=== PATIENT | female | born 1990 | race Caucasian/White ===

== ENCOUNTER 2016-10-14 08:17 | Emergency (ER) | payer OTHER ==
[2016-10-14 08:39] LABS: URINE MICRO REVIEW NEEDED? NO; URINE SOURCE CLEAN CATCH
[2016-10-14 08:41] LABS: BILIRUBIN URINE NEGATIVE (NEGATIVE); BLOOD URINE TRACE (NEGATIVE); COLOR YELLOW; GLUCOSE URINE NEGATIVE (NEGATIVE); LEUKOCYTES URINE MODERATE (NEGATIVE); NITRITE URINE NEGATIVE (NEGATIVE); PROTEIN URINE TRACE mg/dL (NEGATIVE); SP GRAVITY URINE 1.018; TURBIDITY URINE HAZY (CLEAR); UROBILINOGEN URINE 3 mg/dL (NORMAL)
[2016-10-14 08:43] LABS: UR EPITHELIAL CELLS <10 /HPF (<10); URINE BACTERIA 2+ /HPF; URINE CULTURE NEEDED? YES; URINE RBC <10 /HPF (<10); URINE WBC TNTC /HPF (<10)
--- NOTE | 2016-10-14 08:58 | PROVIDER DOCUMENTATION ---
HPI-Female /OB/Breast - General Chief Complaint: UTI Symptoms Stated Complaint: POSS UTI Time Seen by Provider: 10/14/16 08:48 Source: reports: patient Allergies/Adverse Reactions: Patient Allergies Allergy/AdvReac Type Severity Reaction Status Date / Time No Known Allergies Allergy Verified 10/14/16 09:17 Home Medications: Home Medication List Medication Instructions Recorded Confirmed Last Taken Type Amoxicillin 875 mg PO TID #30 tablet 07/02/16 Unknown Rx Tramadol [Ultram] 50 mg PO Q6H PRN PRN #30 tablet 07/02/16 Unknown Rx Phenazopyridine HCl [Pyridium] 100 mg PO TID #6 tablet 10/14/16 Unknown Rx Sulfamethoxazole/Trimethoprim 1 each PO BID #10 tablet 10/14/16 Unknown Rx [Bactrim Ds Tablet] - History of Present Illness-Female /OB Nature of Presenting Problem: This pt presents to the ED with c/o dysuria, hematuria, and left sided flank pain since Monday. She also reports "brownish, reddish chunks" in her urine. Has a hx of frequent UTIs. Denies N/V/D, chills, fever. Location of complaint: reports: suprapubic, urethral Quality of Pain: reports: aching, burning Severity in ED: reports: moderate Onset/Duration: reports: 24 hours ago Timing: reports: still present Vaginal Symptoms: reports: no symptoms Vaginal Bleeding Amount: None Urinary Symptoms: reports: dysuria, frequency Related Symptoms: reports: no symptoms Leakage of Fluid: none Sexual intercourse history: reports: Less Than 2 Months Ago, Single Partner Similar Symptoms Previously?: Yes Recently seen or treated by another doctor?: No Review of Systems - Adult - REVIEW OF SYSTEMS - ADULT Constitutional: reports: no symptoms reported. denies: chills, fever Eyes: reports: no symptoms reported. denies: discharge, dry eyes Ears, Nose, Mouth & Throat: reports: no symptoms reported. denies: ear discharge, ear pain Cardiovascular: reports: no symptoms reported. denies: chest pain, edema Respiratory: reports: no symptoms reported. denies: chronic cough, cough Gastrointestinal: reports: abdominal pain. denies: hematemesis, diarrhea, nausea, vomiting Genitourinary: reports: dysuria, frequency, frequent UTI's. denies: discharge, flank pain, hematuria Musculoskeletal: reports: no symptoms reported. denies: bone pain, back pain Integumentary: reports: no symptoms reported. denies: hives, hair loss Neurological: reports: no symptoms reported. denies: ataxia, dizziness/vertigo Psychiatric: reports: no symptoms reported. denies: anxiety, anti-depressant use Endocrine: reports: no symptoms reported Hematologic/Lymphatic: reports: no symptoms reported Allergic/Immunologic: reports: no symptoms reported All Other Systems: Reviewed and Negative Past History - Adult - PAST MEDICAL HISTORY-ADULT Review of Records: reports: Old Records Reviewed, Nursing Assessment Review, Medications Reviewed, Social history reviewed & non-contributory. Major Childhood Illnesses: reports: denies history Cardiovascular: reports: denies history Respiratory: reports: denies history Gastrointestinal: reports: cholelithiasis Obstetrical/Gynecological: reports: denies history Genitourinary: reports: cancer (cervical) Musculoskeletal: reports: denies history Neurological: reports: denies history Psychiatric: reports: depression Endocrine/Immune: reports: denies history Other Conditions: reports: denies history - PRIOR SURGERIES/PROCEDURES Surgical/Procedure History: reports: appendectomy, cholecystectomy, hysterectomy - IMMUNIZATION STATUS Childhood Immunizations: See Nurse Assessment Flu Vaccine: See Nurse Assessment Physical Exam-General - PHYSICAL EXAM-ADULT Initial Vital Signs Reviewed: Yes - CONSTITUTIONAL General Appearance: appears well, alert, no apparent distress - EYES Eyes: PERRL/EOMI, pink conjunctivae - HEAD, EARS, NOSE, MOUTH & THROAT HENMT: normocephalic/atraumatic, moist mucous membranes, normal ENT inspection - NECK Neck: non-tender, full range of motion, supple - RESPIRATORY Respiratory: chest non-tender, lungs clear, normal breath sounds - CARDIOVASCULAR Cardiovascular: normal peripheral pulses, regular rate, rhythm - GASTROINTESTINAL (ABDOMEN) Abdominal Exam: normal bowel sounds, non tender, soft - MUSCULOSKELETAL Back Exam: normal inspection, no CVA tenderness, no vertebral tenderness Extremity: normal range of motion, non-tender, normal gait, normal inspection - SKIN Integumentary: normal color, normal turgor, warm/dry - NEUROLOGIC Neurologic: grossly normal, no motor/sensory deficits Progress - PLAN OF CARE/RESULTS Progress/Plan/Lab Results: Laboratory Tests 10/14/16 08:35 Urine Source CLEAN CATCH Urine Color YELLOW Urine Turbidity HAZY Urine pH 7.0 Ur Specific [place] 1.018 Urine Protein TRACE A Ur Glucose (Stick) NEGATIVE Ur Ketones (Stick) NEGATIVE Urine Blood TRACE A Urine Nitrite NEGATIVE Urine Bilirubin NEGATIVE Urobilinogen Dipstick 3 A Urine Leukocytes MODERATE A Urine WBC (Auto) TNTC A Urine RBC (Auto) <10 U Epithel Cells (Auto) <10 Urine Bacteria (Auto) 2+ Orders Category Date Time Status URINALYSIS W/POSS RFLX CULT [URINALYSIS] Stat Lab 10/14/16 08:35 Completed URINE CULTURE [RM] Routine Lab 10/14/16 08:47 Received Vital Signs Temp Pulse Resp BP Pulse Ox 10/14/16 09:14 98.3 F 70 18 129/72 100 10/14/16 08:20 98.4 F 85 16 124/73 100 No Known Allergies Allergy (Verified 10/14/16 09:17) Amoxicillin 875 mg PO TID #30 tablet 07/02/16 Tramadol [Ultram] 50 mg PO Q6H PRN PRN #30 tablet 07/02/16 I&O 10/13/16 10/14/16 10/15/16 06:59 06:59 06:59 Output Total 30 Balance -30 Laboratory 10/14/16 08:35 Urine Source CLEAN CATCH Urine Color YELLOW Urine Turbidity HAZY Urine pH 7.0 Ur Specific [place] 1.018 Urine Protein TRACE A Ur Glucose (Stick) NEGATIVE Ur Ketones (Stick) NEGATIVE Urine Blood TRACE A Urine Nitrite NEGATIVE Urine Bilirubin NEGATIVE Urobilinogen Dipstick 3 A Urine Leukocytes MODERATE A Urine WBC (Auto) TNTC A Urine RBC (Auto) <10 U Epithel Cells (Auto) <10 Urine Bacteria (Auto) 2+ Departure - Departure Time of Disposition Order: 09:24 DIAGNOSIS: UTI (urinary tract infection) Qualifiers: Urinary tract infection type: acute cystitis Hematuria presence: without hematuria Qualified Code(s): N30.00 - Acute cystitis without hematuria Disposition: HOME 01 Certified Medical Emergency: Emergent Condition: Good Additional Instructions: Take medication as prescribed. Stay well hydrated. Follow up with your primary care provider. ED Follow Up Instructions: You have been treated by a care provider in the Emergency Department. These instructions are being provided to you so you can have an understanding of how to care for yourself upon discharge. Upon discharge from the Emergency Department, you are responsible for making arrangements for follow-up care by a physician of your choice. Take all prescribed medications as directed. Return to the Emergency Department immediately for any new or worsening symptoms. You may call the Physician Referral phone number at [phone] to obtain a list of Physicians who are taking new patients. Prescriptions: Sulfamethoxazole/Trimethoprim [Bactrim Ds Tablet] 1 each PO BID #10 tablet Phenazopyridine HCl [Pyridium] 100 mg PO TID #6 tablet Attestation - Physician/ SRIDEVI Attestation Patient care was provided by Advanced Practice Provider:: Yes Advanced Practice Provider:: Eitan Lujan Advanced Practice Provider documentation review:: The Mid-level provider documentation, treatment plan and medical decision making was reviewed by the physician who agrees with all treatment and medical decision making by the MLP.
[2016-10-14 09:15] VITALS: BP 129/72
== END 2016-10-14 09:34 | disposition home or self-care (01) ==
LOC: ED 08:17
DX: N30.00 Acute cystitis without hematuria (principal); R30.0 Dysuria; R31.9 Hematuria, unspecified; R35.0 Frequency of micturition; R10.9 Unspecified abdominal pain; Z87.440 Personal history of urinary (tract) infections; Z85.41 Personal history of malignant neoplasm of cervix uteri
CPT/HCPCS: 81001; 87077; 87088; 87186; 99283